=== PATIENT | female | born 1955 | race Caucasian/White ===

== ENCOUNTER → 2023-03-12 10:38 | Outpatient (POV) | payer MEDICARE, SELFPAY ==
--- NOTE | 2023-03-12 11:12 | A.OFFVIS_ITS ---
HPI Data of Consult Patient: new to practice Consult date: 03/12/23 Requesting Physician: Sheila Santiago APRN Consult Narrative Reason for consult: Low back pain, buttocks pain History of present illness: Ms. Collazo is a 67 year old female who presents today as a transfer patient from the [place] pain [facility] clinic. Today she rates her pain a 6 out of 10. Patient states her pain is all around her low back and buttocks and describes it as spasms that do come and go. Patient did just have a minimally invasive lumbar decompression of L3-L4 and L4-L5 bilaterally back on 03/04/2023. Patient states that she has had significant improvement in her leg symptoms and does not have the aches and pains when she goes to get up from a seated position. Patient states she has been able to increase her activity with decreased pain. Patient does states she has a history of lower kidney function as well as a fatty liver so she tries to minimize what medication she takes. Patient has had injections in the past including the lumbar epidural with epidurogram back in December that did provide 90% relief. Patient has tried [id number] medications such as Tylenol and ibuprofen along with heat and ice and topicals with minimal relief. Patient does state that she typically will just use an occasional ibuprofen or Tylenol as needed for pain. Patient is currently managed with pregabalin 75 mg twice daily from an outside provider. Her Reggie has been reviewed and is appropriate. CC: Sheila Santiago APRN [facility] Disclaimer: The information contained in this section may have been updated after the patient was seen, as this information can be updated by other users. Social History Smoking Status: Never smoker alcohol intake: never current occupational status: employed and disabled Travel in the last 8 weeks: Inside the [place] Review of Systems Review of Systems Review of systems:: pertinent systems reviewed and negative unless documented below Review of systems (narrative): Review of Systems: General: No recent weight changes, no fever, no sleep disturbances Respiratory: No cough, no shortness of air, no recurring pulmonary infections Cardiovascular/peripheral vascular: No chest pain, no palpitations, no edema, no shortness of breath Gastrointestinal: No new onset incontinence, normal bowel movements reported Genitourinary: No new onset incontinence Musculoskeletal: Low back pain, buttocks pain Psychiatric: [Normal mood/affect] Neurological: [Denies weakness in extremities], [denies balance issues] Meds Home Medications and Allergies Home Medications Medication Instructions Recorded Confirmed Type alprazolam 0.5 mg tablet 0.5 mg PO QDAY 03/05/17 09/28/19 History conjugated estrogens 1.25 mg 1.25 mg PO QDAY 03/05/17 09/28/19 History tablet (Premarin) levothyroxine 75 mcg capsule 75 mcg PO QDAY 03/05/17 09/28/19 History nitroglycerin 0.4 mg sublingual 0.4 mg sublingual Q5M PRN 03/05/17 09/28/19 History tablet pantoprazole 40 mg tablet,delayed 40 mg PO QDAY 03/05/17 09/28/19 History release (Protonix) hydrochlorothiazide 25 mg tablet 25 mg PO QDAY #30 tabs 03/16/18 09/28/19 Rx atorvastatin 40 mg tablet (Lipitor) 40 mg PO QDAY #30 tabs 07/30/18 09/28/19 Rx nebivolol 5 mg tablet (Bystolic) 5 mg PO DAILY #30 tabs 07/30/18 09/28/19 Rx amlodipine 5 mg tablet (Norvasc) 5 mg PO DAILY 09/28/19 09/28/19 History New Prescriptions to Start Prescriptions: Allergies Allergy/AdvReac Type Severity Reaction Status Date / Time lisinopril Allergy Severe angioedema Verified 09/28/19 11:31 Objective Narrative: Physical Exam: General: Alert and oriented x3, no acute distress, pleasant and cooperative Lungs: Respirations even and unlabored, symmetrical chest expansion Eyes: PERRL Musculoskeletal: Flexion and extension of lumbar [spine] somewhat guarded secondary to pain, [antalgic gait noted] mild tenderness around bilateral SIs with a negative Naomi Neurological: Speech clear, no gross sensory deficit Assessment and Plan *Assessment and plan (1) Degenerative disc disease, lumbar: Status: Acute Category: Medical Code(s): M51.36 - Other intervertebral disc degeneration, lumbar region (2) Lumbar radiculopathy: Status: Acute Category: Medical Code(s): M54.16 - Radiculopathy, lumbar region (3) Lumbar spinal stenosis: Status: Acute Qualifiers: Neurogenic claudication status: with neurogenic claudication Qualified Code(s): M48.062 - Spinal stenosis, lumbar region with neurogenic claudication Category: Medical Code(s): M48.061 - Spinal stenosis, lumbar region without neurogenic claudication (4) Buttock pain: Status: Acute Category: Medical Code(s): M79.18 - Myalgia, other site Plan Patient has had significant improvement following her lumbar decompression. I have discussed with the patient that I will send in baclofen 5 mg 3 times daily with a 2-week supply of this medication for her muscle spasms that she is experiencing in her low back and buttocks. Patient did have a negative Naomi's during today's exam and I have explained to the patient that it may just be related to inflammation following her surgical procedure. We will follow-up with her in 1 month for reevaluation of symptoms and plan of care. Patient has been instructed to contact the clinic with any concerns before the next appointment. Dr. Moreno has reviewed this note and agrees with this plan of care. This note was dictated using voice recognition software and make contain errors or omissions.
[2023-03-12 11:26] VITALS: BP 99/66; PULSE 64; RESP 18; O2SAT 95; BMI 32.5
== END | disposition home or self-care (01) ==
PROVIDERS: Visit Provider Nurse Practitioner Family
DX: M51.16 Intervertebral disc disorders with radiculopathy, lumbar region (principal); M48.062 Spinal stenosis, lumbar region with neurogenic claudication; M79.18 Myalgia, other site
CPT/HCPCS: 99202; G0463

== ENCOUNTER → 2023-03-23 12:56 | Outpatient (POV) | payer MEDICARE, SELFPAY ==
--- OUTSIDE RECORDS SUMMARY | 2023-03-23 12:58 | XMS_ITS ---
Care Plan - [facility], [facility] Created on: March 23, 2023 Mark Collazo : 1955 Sex: Female Author Name Unknown Address [address] [place] [address] [place] [address] Phone Organization [facility] , [facility] [address] [place] [address] Phone Care Team Providers Care Inside Trucker Name Role Phone Amol GARCÍA, Dao Unavailable [phone]
[2023-03-23 13:38] VITALS: BP 141/76; PULSE 51; RESP 18; O2SAT 97; BMI 32.5
--- NOTE | 2023-03-23 13:50 | EXP.PAIN.SOA ---
[facility] Pain Management SOAP Note Subjective:: Patient is a pleasant 67-year-old female who presents today for follow-up due to worsening pain. We are currently treating the patient for degenerative disc disease of lumbar spine with lumbar radiculopathy symptoms, lumbar spinal stenosis with neurogenic claudication symptoms, buttocks pain. Today she rates her pain a 10 out of 10. Patient denies any new trauma or injury. She states that she continues to have worsening pain in her low back with radiating symptoms down into her legs all the way to her ankles and toes. Patient does describe this as a constant aching, throbbing sensation with occasional sharp shooting pains and numbness and tingling. Patient does state the pain interferes with her ability perform activities of daily living such as cooking and cleaning. Patient did previously have a lumbar decompression of L3-L4 and L4-L5 bilaterally back on 04 March. Patient does state that that in the procedure did improve a lot of her pain symptoms and states that it took all of her knee pain away following and its never returned. Patient states that she just continues to have the worsening low back pain. Patient does state that she had a lumbar MRI done at [facility] there in [place] prior to the procedure. At our last visit we did prescribe the patient baclofen 5 mg 3 times a day as needed with a 2-week supply however the patient does state that she feels like her balance is off when she takes this medication. Patient is currently managed with pregabalin 75 mg twice a day and alprazolam 0.5 mg 3 times a day from an outside provider. Her Reggie has been reviewed and is appropriate. Review of Systems: General: No recent weight changes, no fever, no sleep disturbances Respiratory: No cough, no shortness of air, no recurring pulmonary infections Cardiovascular/peripheral vascular: No chest pain, no palpitations, no edema, no shortness of breath Gastrointestinal: No new onset incontinence, normal bowel movements reported Genitourinary: No new onset incontinence Musculoskeletal: Low back pain, leg pain Psychiatric: [Normal mood/affect] Neurological: [Denies weakness in extremities], [denies balance issues] Objective:: Physical Exam: General: Alert and oriented x3, no acute distress, pleasant and cooperative Lungs: Respirations even and unlabored, symmetrical chest expansion Eyes: PERRL Musculoskeletal: Flexion and extension of lumbar [spine] somewhat guarded secondary to pain, [antalgic gait noted] positive bilateral leg raise Neurological: Speech clear, no gross sensory deficit Assessment:: Degenerative disc disease of lumbar spine with lumbar radiculopathy symptoms, lumbar spinal stenosis with neurogenic claudication symptoms, status post lumbar decompression bilaterally L3-L4 and L4-L5 Plan:: Patient is experiencing worsening pain in her low back and legs with limited range of motion and a positive bilateral leg raise. I have discussed with the patient that I will get a copy of her lumbar imaging from [place] however I do believe she would benefit from a lumbar epidural steroid injection. Risk and benefits were discussed with patient and she would like to proceed forward with this plan of care. Patient is not on any blood thinners. I have also discussed with patient that we will discontinue the baclofen due to feeling unsteady on her feet and I will send in a prescription of methocarbamol 500 mg 3 times daily as needed. Patient will be scheduled for a LESI L4-L5 under fluoroscopy. Patient has been instructed to contact the clinic with any concerns before the next appointment. Dr. Moreno has reviewed this note and agrees with this plan of care. This note was dictated using voice recognition software and make contain errors or omissions. [facility] Disclaimer: The information contained in this section may have been updated after the patient was seen, as this information can be updated by other users. Medical History (Updated 03/12/23 @ 11:27 by Nena Ruelas RN) Arthritis CVA (cerebral vascular accident) GERD (gastroesophageal reflux disease) HLD (hyperlipidemia) HTN (hypertension) Renal failure Surgical History (Updated 03/12/23 @ 11:27 by Nena Ruelas RN) H/O: hysterectomy History of colon resection History of renal stent Family History (Updated 03/12/23 @ 11:28 by Nena Ruelas RN) Other Unknown family medical history Social History (Updated 03/12/23 @ 11:28 by Nena Ruelas RN) Smoking Status: Never smoker alcohol intake: never current occupational status: retired Travel in the last 8 weeks: None
== END | disposition home or self-care (01) ==
PROVIDERS: Visit Provider Nurse Practitioner Family
DX: M51.16 Intervertebral disc disorders with radiculopathy, lumbar region (principal); M48.062 Spinal stenosis, lumbar region with neurogenic claudication
CPT/HCPCS: 99212; G0463

== ENCOUNTER 2023-04-03 11:42 | Day surgery (SDC) | payer MEDICARE, SELFPAY ==
[2023-04-03 12:13] VITALS: BP 131/71; PULSE 75; RESP 18; O2SAT 91; BMI 32.8
[2023-04-03] MEDS: methylPREDNISolone ACETATE 80MG/ML VIAL 80 MG (12:56)
[2023-04-03] MEDS: LIDOCAINE 1% 30ML PF VIAL 30 ML (12:57)
[2023-04-03 12:58] VITALS: BP 117/63; PULSE 57; RESP 18; O2SAT 98
[2023-04-03 13:00] VITALS: BP 124/68; PULSE 60; RESP 18; O2SAT 93
[2023-04-03 13:01] VITALS: BP 117/63; PULSE 57; RESP 18; O2SAT 98
[2023-04-03] MEDS: IOPAMIDOL-200 (41%); 20ML VIAL 20 ML IV (13:01)
--- NOTE | 2023-04-03 13:08 | P.PCN_ITS ---
Procedure Date: 04/03/23 Time: 13:08 Anesthesiologist:: Chip Moreno MD Complications:: None Pre-procedure Diagnosis:: Degenerative disc disease of lumbar spine with lumbar radiculopathy symptoms Post-procedure Diagnosis:: Same Indications for Procedure:: This patient is a pleasant 67-year-old white female who we are treating for low back pain with lumbar radiculopathy symptoms. She has increasing pain in her back radiating down her right hip and right leg. This is worsened since her mi ld procedure. She did get some benefit in her knee pain and mobility from the mild procedure however it is aggravated her polyneuropathy especially in the right hip and right leg. Will do a lumbar pleural steroid injection today to see if this will help with her radicular symptoms. Procedure Details:: Informed consent was obtained and the risk and benefits of the procedure was explained to the patient. The patient was taken to the procedure room. The patient was placed prone on the procedure table. The patient was prepped and draped in sterile fashion. C-arm fluoroscopy was used to view the lumbar spine. Skin and subcutaneous tissues were anesthetized using lidocaine. I placed an 18-gauge epidural needle and advanced into the L4-L5 interspace using fluoroscopic guidance and [id number] to air. After confirmation of needle placement in the epidural space with dye I injected 2 mL of lidocaine 1.5% with Depo-Medrol 80 mg. Patient tolerated the procedure well with no complications. Plan and Disposition:: Will follow-up with this patient in 2 weeks. Will reevaluate symptoms at that time. If she continues to have significant pain she may be a candidate for right SI joint injection under fluoroscopy.
== END 2023-04-03 13:00 | disposition home or self-care (01) ==
PROVIDERS: PCP Family Medicine; Visit Provider Anesthesiology
DX: M51.16 Intervertebral disc disorders with radiculopathy, lumbar region (principal)
CPT/HCPCS: 62323; J1040; Q9966